=== PATIENT | male | born 2000 ===

== ENCOUNTER 2020-07-07 10:27 | Emergency (ER) | payer OTHER ==
[~2020-07-07] VITALS: Ht 175.3 cm; Wt 99.8 kg
[2020-07-07] MEDS ORDERED: KETO10TA2 PO (12:40)
[2020-07-07] MEDS ORDERED: NORFLEX100MG PO (12:40)
== END 2020-07-07 12:48 | disposition home or self-care (01) ==
LOC: ER 10:27
DX: M54.2 Cervicalgia (principal); M25.512 Pain in left shoulder